=== PATIENT | female | born 1995 | race Caucasian/White ===

== ENCOUNTER 2020-04-25 13:05 | Emergency (ER) | payer OTHER, SELFPAY ==
--- NOTE | ~2020-04-25 | XR_ITS ---
EXAMINATION: XR toe 1st LT min 2V DATE: 04/25/2020 13:58 INDICATION: Left great toe pain. TECHNIQUE: 4 views of left great toe were obtained. COMPARISON: None. FINDINGS: Bone alignment is normal. No fracture. Joint spaces are well maintained. IMPRESSION: 1. No fracture. Reviewed, dictated and finalized at location A. [employer] IMPRESSION: 1. No fracture.
[2020-04-25 13:09] VITALS: BP 126/80; PULSE 75; RESP 16; TEMP 36.4; O2SAT 100
[2020-04-25 15:12] VITALS: BP 110/70; BP 111/77; BP 117/69; PULSE 102; PULSE 77; PULSE 85
--- NOTE | 2020-04-25 15:27 | ED.GENADULT ---
HPI - General Adult General Chief complaint: Syncope Stated complaint: Head Injury Time Seen by Provider: 04/25/20 13:28 Source: patient Mode of arrival: ambulatory Limitations: no limitations History of Present Illness HPI narrative: Patient is a 24-year-old female who presented with syncope while giving plasma patient was sitting at the time had syncopal episode did strike the right side of her head noting some irritation of the right ear as well as discomfort to the left great toe and mild neck pain patient on arrival notes slight nausea patient denies similar occurrence in the past does not take anything for her symptoms presents in no distress Related Data Allergies Allergy/AdvReac Type Severity Reaction Status Date / Time No Known Allergies Allergy Verified 04/25/20 13:08 Review of Systems Review of Systems: All systems reviewed & are unremarkable except as noted in HPI and below PMFSH Social History Social History Social History: Smoking status: Never smoker Alcohol intake: never Substance use: never Substance use type: does not use Gender identity (if verbalized by the patient): Female Exam Narrative: Exam Narrative: GENERAL: Well-appearing, well-nourished, and in no acute distress. HEAD: Normocephalic, atraumatic. EYES: PERRLA and EOMI. ENT: Nares clear, no rhinorrhea or epistaxis. Mucous membranes moist. CHEST: Clear to auscultation. No respiratory distress. No wheezes rales or rhonchi HEART: Regular rate and rhythm. No murmur heard. EXTREMITIES: Normal range of motion. No edema. Tenderness of the left great toe no deformity. No midline cervical tenderness to palpation. SKIN: Warm, dry, no rash. NEURO: No focal deficits. Alert and oriented x3. Neurovascularly intact. Cranial nerves II through XII grossly intact. Normal speech and gait PSYCH: Normal mood and affect. Course Vital Signs Vital signs: Vital Signs Temperature 97.6 F 04/25/20 13:09 Pulse Rate 75 04/25/20 13:09 Respiratory Rate 16 04/25/20 13:09 Blood Pressure 126/80 04/25/20 13:09 Pulse Oximetry 100 04/25/20 13:09 Temperature 97.6 F 04/25/20 13:09 Pulse Rate 102 H 04/25/20 15:12 Respiratory Rate 16 04/25/20 13:09 Blood Pressure 117/69 04/25/20 15:12 Pulse Oximetry 100 04/25/20 13:09 Medical Decision Making MDM Narrative Medical decision making narrative: Patients injury or pain is consistent with musculoskeletal etiology. No signs of neurological or vascular compromise on exam. Compartments and tisues are soft without signs of compartment syndrome. Pain is felt appropriate for further evaluation on an outpatient basis.. Patient with likely vasovagal syncope felt safe for discharge home Vital Signs Vital Signs: Vital Signs Temperature 97.6 F 04/25/20 13:09 Pulse Rate 75 04/25/20 13:09 Respiratory Rate 16 04/25/20 13:09 Blood Pressure 126/80 04/25/20 13:09 Pulse Oximetry 100 04/25/20 13:09 Temperature 97.6 F 04/25/20 13:09 Pulse Rate 102 H 04/25/20 15:12 Respiratory Rate 16 04/25/20 13:09 Blood Pressure 117/69 04/25/20 15:12 Pulse Oximetry 100 04/25/20 13:09 Discharge Plan Discharge Clinical Impression: Syncope, vasovagal, Toe pain, left, Cervical strain, Head injury Patient Disposition: Home, Self-Care Condition: Stable Instructions: Antibiotic Form, Syncope (ED) Additional Instructions: Follow up with your primary care doctor in 5-7 days for re-evaluation. Go to ER for worsening pain, vision changes, nausea/vomiting, fever/chills, weakness, chest pain, shortness of breath, numbness/tingling, slurred speech, difficulty walking, change in mental status etc. or any other concerns. Take any prescribed medications as directed. Prescriptions: New ondansetron 4 mg tablet,disintegrating 4 mg PO Q6H PRN (Reason: nausea and vomiting) Qty: 7 RF: 0 No
== END 2020-04-25 15:47 | disposition home or self-care (01) ==
PROVIDERS: Emergency Provider Emergency Medicine; PCP Family Medicine
DX: R55 Syncope and collapse (principal); M79.675 Pain in left toe(s); S16.1XXA Strain of muscle, fascia and tendon at neck level, initial encounter; S09.90XA Unspecified injury of head, initial encounter; W19.XXXA Unspecified fall, initial encounter
CPT/HCPCS: 73660; 99283